=== PATIENT | female | born 1985 | race Caucasian/White ===

== ENCOUNTER 2021-01-16 00:48 | Emergency (ER) | payer OTHER ==
[~2021-01-16] VITALS: Ht 149.9 cm; Wt 74.1 kg
[2021-01-16] MEDS ORDERED: FEXO60TA71 PO (01:26)
[2021-01-16] MEDS ORDERED: PARO40TA3 PO (01:26)
[2021-01-16] MEDS ORDERED: TRUL0.5I SC (01:26)
[2021-01-16] MEDS ORDERED: OMEP40CA4 PO (01:26)
[2021-01-16 01:50] LABS: HEMATOCRIT 47.4 % (36.0-47.0); HEMOGLOBIN 16.2 g/dl (12.0-15.5); MEAN CORPUSCULAR HEMOGLOBIN 29.9 pg (27.0-33.0); MEAN CORPUSCULAR HGB CONC 34.2 g/dl (32.0-36.5); MEAN CORPUSCULAR VOLUME 87.5 fl (80.0-96.0); PLATELET COUNT, AUTOMATED 294 10^3/uL (150-450); RED BLOOD COUNT 5.42 10^6/uL (4.00-5.40); WHITE BLOOD COUNT 13.1 10^3/uL (4.0-10.0)
[2021-01-16 02:17] LABS: AMPHETAMINES LEVEL URINE NEGATIVE (NEGATIVE); BARBITURATES URINE NEGATIVE (NEGATIVE); BENZODIAZEPINES URINE NEGATIVE (NEGATIVE); CANNABINOIDS URINE NEGATIVE (NEGATIVE); COCAINE METABOLITE URINE NEGATIVE (NEGATIVE); METHADONE URINE NEGATIVE (NEGATIVE); OPIATES URINE NEGATIVE (NEGATIVE); PHENCYCLIDINE URINE NEGATIVE (NEGATIVE)
[2021-01-16 02:39] LABS: ACETAMINOPHEN LEVEL < 2.0 UG/ML (10.0-30.0); ALBUMIN 3.9 GM/DL (3.2-5.2); ALT/SGPT 93 U/L (12-78); BILIRUBIN,DIRECT < 0.1 MG/DL (0.0-0.2); BILIRUBIN,TOTAL 0.4 MG/DL (0.2-1.0); BLOOD UREA NITROGEN 6 MG/DL (7-18); CALCIUM LEVEL 9.1 MG/DL (8.5-10.1); CARBON DIOXIDE LEVEL 24 MEQ/L (21-32); CHLORIDE LEVEL 110 MEQ/L (98-107); ETHYL ALCOHOL (ETHANOL) 0.221 % (0.000-0.010); GLOMERULAR FILTRATION RATE > 60.0 (>60); GLUCOSE, FASTING 179 MG/DL (70-100); SALICYLATE LEVEL 2.8 MG/DL (5.0-30.0); SODIUM LEVEL 142 MEQ/L (136-145); THYROID STIMULATING HORMONE 0.796 uIU/ML (0.358-3.740)
[2021-01-16] MEDS ORDERED: OMEPRAZOLE 20 MG CAP PO ONE (10:55)
[2021-01-16 12:28] VITALS: BP 140/91
== END 2021-01-16 12:41 | disposition home or self-care (01) ==
LOC: M ED 00:48
DX: F10.129 Alcohol abuse with intoxication, unspecified (principal); F17.200 Nicotine dependence, unspecified, uncomplicated; F12.10 Cannabis abuse, uncomplicated; Z88.5 Allergy status to narcotic agent

== ENCOUNTER → 2021-04-15 | Outpatient (REF) ==
[~2021-04-15] MED LIST: FEXO60TA71 PO; OMEP40CA4 PO; PARO40TA3 PO; TRUL0.5I SC
[2021-04-15 14:37] LABS: RSV AMPLIFICATION NEGATIVE (NEGATIVE)
== END ==
LOC: M LABSMTC 10:14
PROVIDERS: ATTEND Pediatrics
DX: Z20.822 Contact with and (suspected) exposure to COVID-19 (principal)

== ENCOUNTER → 2021-04-18 | Outpatient (REF) ==
[2021-04-19 15:05] LABS: RSV AMPLIFICATION NEGATIVE (NEGATIVE)
== END ==
LOC: M LABSMTC 13:50
PROVIDERS: ATTEND Pediatrics
DX: Z20.822 Contact with and (suspected) exposure to COVID-19 (principal)

== ENCOUNTER → 2021-05-16 | Outpatient (REF) | LOC: M LABSMTC 09:37 | PROVIDERS: ATTEND Pediatrics | DX: Z20.822 Contact with and (suspected) exposure to COVID-19 (principal) ==

== ENCOUNTER → 2021-05-21 | Outpatient (REF) | LOC: M EMP 07:59 | PROVIDERS: ATTEND Family Medicine | DX: Z20.822 Contact with and (suspected) exposure to COVID-19 (principal) ==

== ENCOUNTER → 2021-06-07 | Outpatient (REF) | LOC: M LABSMTC 11:08 | PROVIDERS: ATTEND Family Medicine | DX: Z20.828 Contact with and (suspected) exposure to other viral communicable diseases (principal) ==

== ENCOUNTER → 2021-06-28 | Outpatient (REF) ==
[2021-06-28 13:25] LABS: RSV AMPLIFICATION NEGATIVE (NEGATIVE)
== END ==
LOC: M LABSMTC 10:41
PROVIDERS: ATTEND Family Medicine
DX: Z20.828 Contact with and (suspected) exposure to other viral communicable diseases (principal)

== ENCOUNTER 2021-07-06 02:53 | Emergency (ER) | payer OTHER ==
[~2021-07-06] VITALS: Ht 149.9 cm; Wt 76.0 kg
[2021-07-06 03:10] VITALS: BP 119/76
--- NOTE | 2021-07-06 03:28 | ED PDOC ---
Post-Departure Follow-Up PT LEFT WITHOUT BEING SEEN ADELFO PEDRAZA, DO Jul 06, 2021 03:28
== END 2021-07-06 04:15 | disposition left against medical advice (07) ==
LOC: M ED 02:53
DX: Z53.21 Procedure and treatment not carried out due to patient leaving prior to being seen by health care provider (principal)

== ENCOUNTER → 2021-07-10 | Outpatient (REF) | payer OTHER | LOC: M LAB REF 20:35 | PROVIDERS: ATTEND Physician Assistant | DX: R19.7 Diarrhea, unspecified (principal) ==

== ENCOUNTER → 2021-09-30 | Outpatient (CLI) | payer OTHER ==
[~2021-09-30] MED LIST changes: -FEXO60TA71 PO; +FEXO60TA98 PO
== END ==
LOC: M OUTALCOH 07:57
PROVIDERS: ATTEND Psychiatry & Neurology Psychiatry
DX: Z13.39 Encounter for screening examination for other mental health and behavioral disorders (principal)

== ENCOUNTER 2021-10-08 12:45 | Outpatient (RCR) | payer MEDICAID | END 2021-10-17 | LOC: M OUTALCOH 12:45 | PROVIDERS: ATTEND Psychiatry & Neurology Psychiatry | DX: Z03.89 Encounter for observation for other suspected diseases and conditions ruled out (principal) ==

== ENCOUNTER 2021-11-27 02:58 | Inpatient (IN) | payer OTHER, MEDICAID ==
[~2021-11-27] VITALS: Ht 149.9 cm; Wt 78.2 kg
[2021-11-27] MEDS ORDERED: methylPREDNISolone 125MG 2ML VIAL IV ONE (03:40)
[2021-11-27] MEDS ORDERED: BENZONATATE 100MG CAPSULE PO ONE (03:45)
[2021-11-27] MEDS ORDERED: ACETAMINOPHEN TAB 650MG DOSE (2X325MG) PO ONE (03:45)
[2021-11-27] MEDS: COMBIVENT RESPIMAT 100-20MCG INHALER 4GM INH SCH ×3 (04:12→04:56)
[2021-11-27 04:22] LABS: VENOUS BASE EXCESS -1.9 (-2.0-2.0); VENOUS HCO3 23.5 MEQ/L (23.0-27.0); VENOUS O2 SATURATION 58.2 % (60.0-80.0); VENOUS PARTIAL PRESSURE O2 28.3 mmHg (30.0-50.0); VENOUS PH 7.365 UNITS (7.330-7.430); VENOUS TOTAL CO2 24.8 MEQ/L (24.0-28.0)
[2021-11-27 04:25] LABS: BASO # 0.1 10^3/uL (0.0-0.2); BASO % 0.6 % (0.0-1.0); EOS # 0.1 10^3/uL (0.0-0.5); EOS % 0.9 % (0.0-3.0); HEMATOCRIT 39.9 % (36.0-47.0); HEMOGLOBIN 13.8 g/dl (12.0-15.5); LYMPH # 2.5 10^3/uL (1.5-5.0); LYMPH % 27.4 % (24.0-44.0); MEAN CORPUSCULAR HEMOGLOBIN 30.4 pg (27.0-33.0); MEAN CORPUSCULAR HGB CONC 34.6 g/dl (32.0-36.5); MEAN CORPUSCULAR VOLUME 87.9 fl (80.0-96.0); MONO # 0.8 10^3/uL (0.0-0.8); MONO % 9.4 % (2.0-8.0); NEUTROPHILS # 5.5 10^3/uL (1.5-8.5); PLATELET COUNT, AUTOMATED 223 10^3/uL (150-450); RED BLOOD COUNT 4.54 10^6/uL (4.00-5.40); WHITE BLOOD COUNT 8.9 10^3/uL (4.0-10.0)
[2021-11-27 04:53] LABS: ALBUMIN 3.6 GM/DL (3.2-5.2); ALT/SGPT 45 U/L (12-78); BILIRUBIN,DIRECT 0.1 MG/DL (0.0-0.2); BILIRUBIN,TOTAL 0.7 MG/DL (0.2-1.0); BLOOD UREA NITROGEN 9 MG/DL (7-18); CALCIUM LEVEL 9.3 MG/DL (8.5-10.1); CARBON DIOXIDE LEVEL 25 MEQ/L (21-32); CHLORIDE LEVEL 105 MEQ/L (98-107); CREATININE FOR GFR 0.93 MG/DL (0.55-1.30); GLOMERULAR FILTRATION RATE > 60.0 (>60); GLUCOSE, FASTING 242 MG/DL (70-100); POTASSIUM SERUM 3.4 MEQ/L (3.5-5.1); SODIUM LEVEL 138 MEQ/L (136-145); TOTAL PROTEIN 7.7 GM/DL (6.4-8.2)
[2021-11-27] MEDS ORDERED: MAG SULF 1GM/100ML (MAG RUN) 1 GM in IV 1 EA IV ONE (06:05)
[2021-11-27] MEDS ORDERED: AZIT-10 PO (06:43)
[2021-11-27] MEDS ORDERED: OMEP40CA5 PO (06:43)
[2021-11-27] MEDS ORDERED: PRED20TA PO (06:43)
[2021-11-27] MEDS ORDERED: FEXO60TA99 PO (06:43)
[2021-11-27] MEDS ORDERED: TRUL10IN SC (06:43)
[2021-11-27] MEDS ORDERED: PARO20TA3 PO (06:43)
[2021-11-27] MEDS ORDERED: HOME MED LIST COMPLETE! XX SCH (06:45)
[2021-11-27] MEDS ORDERED: ACETAMINOPHEN TAB 650MG DOSE (2X325MG) PO PRN (09:00)
[2021-11-27] MEDS: ENOXAPARIN 40MG/0.4ML SYRINGE (J1650 PER 10MG) SC SCH (09:00)
[2021-11-27] MEDS ORDERED: ALBUTEROL SULFATE 2.5 MG/0.5 ML INH NEB SOLN INH PRN (09:00)
[2021-11-27] MEDS: FEXOFENADINE 60MG TAB PO SCH (09:00)
[2021-11-27] MEDS ORDERED: MOM 30ML SUSPENSION UDC PO PRN (09:00)
[2021-11-27] MEDS: OMEPRAZOLE 20MG CAP PO SCH ×2 (10:04→20:56)
[2021-11-27] MEDS: PARoxetine 20MG TABLET PO SCH (10:04)
[2021-11-27] MEDS: LevoFLOXacin IV 750 MG in IV 1 EA IV SCH (10:05)
[2021-11-27] MEDS: IPRATROPIUM 0.5MG/ALBUTEROL 2.5MG INH SOL UD 3ML (DUONEB) INH SCH ×3 (10:13→20:17)
[2021-11-27] MEDS: methylPREDNISolone 125MG 2ML VIAL IV SCH ×2 (11:57→20:56)
[2021-11-27 15:33] VITALS: BP 131/80
[2021-11-27] MEDS ORDERED: DEXTROSE 50% 50 ML SYRINGE IV PRN (17:25)
[2021-11-27] MEDS ORDERED: GLUCAGON INJ 1MG VIAL SC PRN (17:25)
[2021-11-27] MEDS ORDERED: GLUCOSE 4GM CHEW TABLET PO PRN (17:25)
[2021-11-27] MEDS: HumaLOG INSULIN (NovoLOG) PER UNIT SC SCH (17:44)
[2021-11-27 18:00] VITALS: BP 122/77
[2021-11-27] MEDS ORDERED: POTASSIUM CHLORIDE 10MEQ SR TABLET PO ONE (18:20)
[2021-11-27] MEDS: NS 1,000 ML IV SCH (18:25)
[2021-11-27] MEDS: BENZONATATE 100MG CAPSULE PO SCH (20:57)
[2021-11-27 21:00] VITALS: BP 126/82
[2021-11-27] MEDS ORDERED: HumaLOG INSULIN (NovoLOG) PER UNIT SC SCH (21:00)
[2021-11-28] MEDS: IPRATROPIUM 0.5MG/ALBUTEROL 2.5MG INH SOL UD 3ML (DUONEB) INH SCH ×2 (01:13→07:16)
[2021-11-28] MEDS: NS 1,000 ML IV SCH (03:28)
[2021-11-28] MEDS: methylPREDNISolone 125MG 2ML VIAL IV SCH (03:28)
[2021-11-28 05:17] VITALS: BP 128/65
[2021-11-28 06:11] LABS: HEMATOCRIT 40.5 % (36.0-47.0); HEMOGLOBIN 14.4 g/dl (12.0-15.5); MEAN CORPUSCULAR HEMOGLOBIN 31.3 pg (27.0-33.0); MEAN CORPUSCULAR HGB CONC 35.6 g/dl (32.0-36.5); PLATELET COUNT, AUTOMATED 271 10^3/uL (150-450); WHITE BLOOD COUNT 18.3 10^3/uL (4.0-10.0)
[2021-11-28 06:48] LABS: BLOOD UREA NITROGEN 16 MG/DL (7-18); CALCIUM LEVEL 9.3 MG/DL (8.5-10.1); CARBON DIOXIDE LEVEL 19 MEQ/L (21-32); CHLORIDE LEVEL 103 MEQ/L (98-107); CREATININE FOR GFR 1.02 MG/DL (0.55-1.30); GLOMERULAR FILTRATION RATE > 60.0 (>60); GLUCOSE, FASTING 417 MG/DL (70-100); MAGNESIUM LEVEL 2.2 MG/DL (1.8-2.4); POTASSIUM SERUM 4.6 MEQ/L (3.5-5.1); SODIUM LEVEL 134 MEQ/L (136-145)
[2021-11-28] MEDS ORDERED: LEVEMIR (INSULIN DETEMIR) 1 UNITS/0.01ML SC SCH (07:00)
[2021-11-28] MEDS: ENOXAPARIN 40MG/0.4ML SYRINGE (J1650 PER 10MG) SC SCH (08:09)
[2021-11-28] MEDS: HumaLOG INSULIN (NovoLOG) PER UNIT SC SCH ×2 (08:09→11:37)
[2021-11-28] MEDS: FEXOFENADINE 60MG TAB PO SCH (08:10)
[2021-11-28] MEDS: BENZONATATE 100MG CAPSULE PO SCH (08:10)
[2021-11-28] MEDS: OMEPRAZOLE 20MG CAP PO SCH (08:10)
[2021-11-28] MEDS: PARoxetine 20MG TABLET PO SCH (08:13)
[2021-11-28] MEDS ORDERED: BENZ-18 PO (08:22)
[2021-11-28] MEDS ORDERED: LEVO750T13 PO (08:22)
[2021-11-28 10:00] VITALS: BP 122/67
[2021-11-28] MEDS: LevoFLOXacin IV 750 MG in IV 1 EA IV SCH (10:13)
== END 2021-11-28 11:56 | disposition home or self-care (01) | DRG 139 ==
LOC: M ED 02:58 → M ED INP 09:00 → ENRESERV 14:19 → M MSPAV 15:35
PROVIDERS: ADMIT Internal Medicine; ATTEND Internal Medicine
DX: J18.9 Pneumonia, unspecified organism (principal); E87.2 Acidosis; J45.901 Unspecified asthma with (acute) exacerbation; K21.9 Gastro-esophageal reflux disease without esophagitis; E11.9 Type 2 diabetes mellitus without complications; F32.A Depression, unspecified; Z79.899 Other long term (current) drug therapy; Z88.5 Allergy status to narcotic agent

== ENCOUNTER → 2022-01-25 | Outpatient (REF) | payer OTHER ==
[~2022-01-25] MED LIST changes: +AZIT-10 PO; +BENZ-18 PO; +FEXO60TA99 PO; +LEVO750T13 PO; +OMEP40CA5 PO; +PARO20TA3 PO; +PRED20TA PO; +TRUL10IN SC
== END ==
LOC: M WUC 17:29
PROVIDERS: ATTEND Physician Assistant
DX: J06.9 Acute upper respiratory infection, unspecified (principal)

== ENCOUNTER 2022-05-03 18:21 | Emergency (ER) | payer OTHER ==
[~2022-05-03 18:21] MED LIST changes: +LEVO1TAB40 PO; -LEVO750T13 PO
[2022-05-03] MEDS ORDERED: NS 1,000 ML IV ONE (18:55)
[2022-05-03] MEDS ORDERED: KETOROLAC 30 MG/ML 1ML VIAL IV ONE (18:55)
[2022-05-03] MEDS ORDERED: ONDANSETRON 4MG 2ML VIAL IV ONE (18:55)
[2022-05-03 19:28] LABS: BASO # 0.1 10^3/uL (0.0-0.2); BASO % 0.7 % (0.0-1.0); EOS # 0.6 10^3/uL (0.0-0.5); EOS % 5.3 % (0.0-3.0); HEMATOCRIT 46.6 % (36.0-47.0); HEMOGLOBIN 16.3 g/dl (12.0-15.5); LYMPH # 3.4 10^3/uL (1.5-5.0); LYMPH % 32.5 % (24.0-44.0); MEAN CORPUSCULAR HEMOGLOBIN 30.9 pg (27.0-33.0); MEAN CORPUSCULAR VOLUME 88.3 fl (80.0-96.0); MONO # 0.7 10^3/uL (0.0-0.8); MONO % 6.7 % (2.0-8.0); NEUTROPHILS # 5.6 10^3/uL (1.5-8.5); NEUTROPHILS % 54.1 % (36.0-66.0); PLATELET COUNT, AUTOMATED 266 10^3/uL (150-450); RED BLOOD COUNT 5.28 10^6/uL (4.00-5.40); WHITE BLOOD COUNT 10.3 10^3/uL (4.0-10.0)
[2022-05-03] MEDS ORDERED: ISOVUE-370 76% 100ML VIAL As Ordered ONE (19:56)
[2022-05-03 20:03] LABS: ALBUMIN 3.6 GM/DL (3.2-5.2); BILIRUBIN,DIRECT < 0.1 MG/DL (0.0-0.2); BILIRUBIN,TOTAL 0.6 MG/DL (0.2-1.0); LIPASE 217 U/L (73-393); TOTAL PROTEIN 7.8 GM/DL (6.4-8.2)
[2022-05-03 20:41] LABS: ALT/SGPT 97 U/L (12-78)
[2022-05-03] MEDS ORDERED: CIPR-249 PO (21:00)
[2022-05-03] MEDS ORDERED: CIPROFLOXACIN 500MG TABLET PO ONE (21:00)
[2022-05-03] MEDS ORDERED: ONDA4TAB6 PO (21:02)
[2022-05-03 21:07] VITALS: BP 116/74
[2022-05-03] MEDS ORDERED: DIFL150T PO (21:18)
== END 2022-05-03 21:20 | disposition home or self-care (01) ==
LOC: M ED 18:21
DX: E11.65 Type 2 diabetes mellitus with hyperglycemia (principal); R16.0 Hepatomegaly, not elsewhere classified; K21.9 Gastro-esophageal reflux disease without esophagitis; J45.909 Unspecified asthma, uncomplicated; F32.9 Major depressive disorder, single episode, unspecified; M54.30 Sciatica, unspecified side; E28.2 Polycystic ovarian syndrome; E66.9 Obesity, unspecified; F17.200 Nicotine dependence, unspecified, uncomplicated; F12.10 Cannabis abuse, uncomplicated; Z79.899 Other long term (current) drug therapy; Z88.5 Allergy status to narcotic agent
CPT/HCPCS: 74177; 80047; 80076; 81000; 81015; 83690; 84702; 85025; 87077; 87186; 96361; 96374; 96375; 99284; J1885; J2405; Q9967

== ENCOUNTER 2022-05-24 19:44 | Emergency (ER) | payer OTHER ==
[~2022-05-24] VITALS: Ht 149.9 cm; Wt 81.8 kg
[~2022-05-24 19:44] MED LIST changes: +CIPR-249 PO; +DIFL150T PO; +ONDA4TAB6 PO
[2022-05-24] MEDS ORDERED: LIDOCAINE 2% W/EPINEPHRINE 20ML VIAL **PRES FREE INJ ONE (20:30)
[2022-05-24] MEDS ORDERED: DERMABOND TOPICAL SKIN ADHESIVE TOP ONE ×2 (20:30)
[2022-05-24] MEDS ORDERED: BOOSTRIX/ADACEL VACCINE (DIPHTH/PERTUSS/ACELL/TETANUS) 0.5ML SYR IM.IMMUN ONE (20:35)
[2022-05-24] MEDS ORDERED: NEOSPORIN OINT 0.9 GM PKT TOP ONE (21:30)
[2022-05-24 21:47] VITALS: BP 147/98
== END 2022-05-24 21:52 | disposition home or self-care (01) ==
LOC: EDBD 19:44 → M ED 19:44
DX: S46.221A Laceration of muscle, fascia and tendon of other parts of biceps, right arm, initial encounter (principal); S41.112A Laceration without foreign body of left upper arm, initial encounter; W25.XXXA Contact with sharp glass, initial encounter; Y92.009 Unspecified place in unspecified non-institutional (private) residence as the place of occurrence of the external cause; F10.129 Alcohol abuse with intoxication, unspecified; E28.2 Polycystic ovarian syndrome; E11.9 Type 2 diabetes mellitus without complications; K21.9 Gastro-esophageal reflux disease without esophagitis; F32.A Depression, unspecified; Z88.5 Allergy status to narcotic agent; Z79.899 Other long term (current) drug therapy

== ENCOUNTER → 2022-06-10 | Outpatient (REF) | payer OTHER | LOC: M LAB REF 21:12 | PROVIDERS: ATTEND Physician Assistant Medical | DX: R05.9 Cough, unspecified (principal); R50.9 Fever, unspecified; R53.83 Other fatigue ==

== ENCOUNTER → 2023-02-02 | Outpatient (REF) | payer OTHER | LOC: M LAB REF 16:25 | PROVIDERS: ATTEND Physician Assistant | DX: J02.9 Acute pharyngitis, unspecified (principal) ==

== ENCOUNTER → 2023-03-13 | Outpatient (CLI) | payer MEDICAID | LOC: M OUTALCOH 08:56 | PROVIDERS: ATTEND Psychiatry & Neurology Psychiatry | DX: Z13.39 Encounter for screening examination for other mental health and behavioral disorders (principal) ==

== ENCOUNTER 2023-03-18 07:57 | Outpatient (RCR) | payer MEDICAID | END 2023-03-19 | LOC: M OUTALCOH 07:57 | PROVIDERS: ATTEND Psychiatry & Neurology Psychiatry | DX: Z03.89 Encounter for observation for other suspected diseases and conditions ruled out (principal); Z72.0 Tobacco use ==

== ENCOUNTER → 2023-08-19 | Outpatient (CLI) | payer MEDICAID, OTHER | LOC: M WUC 15:28 | PROVIDERS: ATTEND Internal Medicine | DX: M54.32 Sciatica, left side (principal) ==

== ENCOUNTER → 2024-09-13 | Outpatient (REF) | payer OTHER ==
[~2024-09-13] MED LIST changes: +ONDA-282 PO; -ONDA4TAB6 PO
== END ==
LOC: M LAB REF 12:20
PROVIDERS: ATTEND Physician Assistant
DX: B34.9 Viral infection, unspecified (principal)

== ENCOUNTER → 2024-11-14 | Outpatient (REF) | payer OTHER | LOC: M LAB REF 21:32 | PROVIDERS: ATTEND Physician Assistant Medical | DX: B34.9 Viral infection, unspecified (principal) ==